=== PATIENT | female | born 1990 | race African-American/Black ===

== ENCOUNTER 2019-11-05 22:23 | Inpatient (IN) | payer BC, OTHER ==
[~2019-11-05 22:23] MED LIST: Iopamidol-370 76% 500 ML 1 ML ONE
[2019-11-05] MEDS ORDERED: Fentanyl 100 MCG/2 ML VIAL ONE (22:32)
[2019-11-05] MEDS ORDERED: Adacel (T-DAP) 0.5 ML SYRINGE ONE (22:32)
[2019-11-05 22:57] LABS: #Basophils 0.1 thou/uL (0.0-0.2); #Eosinphils 0.2 thou/uL (0.0-0.7); #Lymphocytes 3.9 thou/uL (1.20-3.40); #Monocytes 0.7 thou/uL (0.11-0.59); #Neutrophils 11.1 thou/uL (1.40-6.50); %Basophils 0.7 % (0.0-1.0); %Lymphocytes 24.5 % (21.0-51.0); %Monocytes 4.5 % (0.0-10.0); %Neutrophils 69.2 % (42.0-75.0); Hemoglobin 12.9 g/dL (12.0-16.0); Mean Corpuscular HGB CONC 32.2 g/dL (32.0-36.0); Mean Corpuscular Hemoglobin 29.4 pg (27.0-31.0); Mean Corpuscular Volume 91.2 fL (78.0-98.0); Mean Platelet Volume 8.1 fL (7.4-10.4); Platelet Count 306 thou/uL (130-400); RBC Distribution Width 11.9 % (11.5-14.5); Red Blood Cell (RBC) Count 4.41 mill/uL (4.20-5.40)
[2019-11-05 23:03] LABS: BHCG - Serum Negative (NEGATIVE); PTT 28.6 sec (22.9-36.1); Pregs Control Background? CLEAR/WHITE (CLR/WHITE); Pregs Control Bar Appear? YES (CONTROL BAR); Prothrombin Time 13.6 sec (12.0-14.7)
[2019-11-05 23:18] LABS: ALT (SGPT) 62 U/L (8-55); AST (SGOT) 94 U/L (5-34); Alcohol Less than 10 mg/dL (Less than 10); Alkaline Phosphatase 97 U/L (40-110); Anion Gap 17 mmol/L (10-20); BUN (Urea Nitrogen) 10 mg/dL (7.0-18.7); Bilirubin, Total 0.4 mg/dL (0.2-1.2); Calc. Creatinine Clearance 0 mL/min (70-130); Carbon Dioxide 23 mmol/L (22-29); Chloride 105 mmol/L (98-107); Estimated GFR-MDRD 87; Globulin 4.1 g/dL (2.4-3.5); Glucose 135 mg/dL (70-105); Potassium 3.7 mmol/L (3.5-5.1); Protein, Total 8.1 g/dL (6.0-8.3); Sodium 141 mmol/L (136-145)
[2019-11-05] MEDS ORDERED: Dextrose 50% Abboject 50 ML SYRINGE SLOW IVP PRN (23:18)
[2019-11-05] MEDS ORDERED: Ondansetron PF 4 MG/2 ML Vial IVP PRN (23:18)
[2019-11-05] MEDS ORDERED: Dextrose 5% in Water 1,000 ML IV PRN (23:18)
[2019-11-05] MEDS ORDERED: HumaLOG 300 UNITS/3 ML VIAL SC PRN (23:18)
[2019-11-05] MEDS ORDERED: Morphine 2 MG/ML SYRINGE SLOW IVP PRN (23:18)
[2019-11-05] MEDS ORDERED: hydrALAZINE 20 MG/ML VIAL SLOW IVP PRN ×2 (23:18)
[2019-11-05] MEDS ORDERED: traMADol HCl 50 MG TAB PO PRN ×2 (23:20)
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
[2019-11-05] MEDS ORDERED: Lidocaine 1% w/Epinephrine 1:100K 20 ML VIAL ONE (23:34)
[2019-11-05] MEDS ORDERED: Morphine 4 MG/ML VIAL ONE (23:47)
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
[2019-11-06] MEDS ORDERED: Lidocaine 1% (PF) 30 ML VIAL ONE (00:24)
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
[2019-11-06 00:35] LABS: Bacteria/HPF None Seen HPF (None Seen); Bilirubin Negative (Negative); Blood, Urine 2+ (Negative); Clarity Clear (Clear); Glucose, Urine (Dipstick) Normal (Negative); Leukocyte Negative Leu/uL (Negative); Nitrite Negative (Negative); Protein, Urine (Dipstick) 20 mg/dL (Neg-Trace); Squamous Epithelial 0-3 HPF (0-3); Urobilinogen Normal mg/dL (Less than 2); WBC/HPF 0-3 HPF (0-3)
[2019-11-06] MEDS ORDERED: Bacitracin 1 PK ONE (00:51)
[2019-11-06] MEDS ORDERED: Morphine 2 MG/ML SYRINGE ONE (01:34)
[2019-11-06] MEDS: Sodium Chloride 0.9% 1,000 ML IV SCH ×2 (02:27→13:08)
[2019-11-06] MEDS: Morphine 4 MG/ML VIAL SLOW IVP PRN ×4 (02:28→12:18)
[2019-11-06] MEDS: Acetaminophen 500 MG TAB PO SCH ×5 (02:28→23:26)
[2019-11-06] MEDS: Ibuprofen 600 MG TAB PO SCH ×2 (02:28→05:37)
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
[2019-11-06 02:54] VITALS: BMI 33.0
--- NOTE | 2019-11-06 08:41 | RAD ---
Exam: Chest one view HISTORY:Respiratory distress Comparison: 11/05/2019 FINDINGS: Cardiac silhouette: Normal Aorta: Unremarkable Pulmonary vessels: Normal Costophrenic angles: Clear LUNGS: Interval development of bilateral (left greater than right) interstitial and alveolar opacitie s. Pneumothorax: None Osseous abnormalities: None IMPRESSION: Bilateral interstitial and alveolar opacities which have developed since the previous rad iograph.
[2019-11-06] MEDS ORDERED: Gabapentin 300 MG CAP PO SCH (09:00)
[2019-11-06] MEDS: Senokot S 8.6-50 MG TAB PO SCH ×3 (10:03→19:37)
[2019-11-06] MEDS: Polyethylene Glycol 3350 17 GM Packet PO SCH ×2 (10:03)
[2019-11-06] MEDS: Gabapentin 300 MG CAP PO SCH ×4 (10:03→19:37)
[2019-11-06 10:17] LABS: Mean Corpuscular HGB CONC 32.8 g/dL (32.0-36.0); Mean Corpuscular Hemoglobin 29.7 pg (27.0-31.0); Mean Corpuscular Volume 90.3 fL (78.0-98.0); Mean Platelet Volume 8.2 fL (7.4-10.4); Platelet Count 254 thou/uL (130-400); RBC Distribution Width 11.9 % (11.5-14.5); Red Blood Cell (RBC) Count 4.37 mill/uL (4.20-5.40); White Blood Cell (WBC) Count 11.7 thou/uL (4.8-10.8)
[2019-11-06] MEDS: Famotidine/PF 20 mg/2ml Vial SLOW IVP SCH ×2 (10:21→19:37)
[2019-11-06 10:27] LABS: Anion Gap 15 mmol/L (10-20); BUN (Urea Nitrogen) 7 mg/dL (7.0-18.7); Calc. Creatinine Clearance 170 mL/min (70-130); Calcium 8.3 mg/dL (7.8-10.44); Carbon Dioxide 20 mmol/L (22-29); Chloride 107 mmol/L (98-107); Estimated GFR-MDRD Greater than 90; Glucose 124 mg/dL (70-105); Magnesium 1.7 mg/dL (1.6-2.6); Phosphorus 3.8 mg/dL (2.3-4.7); Potassium 3.8 mmol/L (3.5-5.1); Sodium 138 mmol/L (136-145)
[2019-11-06 10:37] LABS: Band 1 % (5-11); Eosinophils 2 % (0-10); Hypersemented Neutrophil SLIGHT; Lymphocytes 17 % (21-51); MDiff Complete? YES; Monocytes 1 % (0-10); Neutrophil 77 % (42-75); Platelet Morphology Comment Appears Adequate; Reactive Lymphocytes 1 % (0-10)
[2019-11-06 10:42] LABS: Base Excess (BEa) -0.4 mEq/L (-2.0 to +3.0); CO2 Tension 38.5 mmHg (35.0-45.0); Carboxyhemoglobin (COHb) 0.9 gm% (0.0-3.0); Hemoglobin (Hb) 12.9 g/dL (12.0-16.0); O2 Tension (PaO2), arterial 78.9 mmHg (80.0-100.0); Potassium - ABG Lab 3.49 mmol/L (3.70-5.30); pH, Arterial 7.41 (7.35-7.45)
[2019-11-06 10:44] LABS: ALV-art Gradient 585.975 (0-20); Puncture Site RRA
[2019-11-06] MEDS ORDERED: Magnesium 2 GM/50 ML 2 GM in Premix Bag 1 BAG IVPB SCH (10:45)
[2019-11-06] MEDS ORDERED: Calcium Chloride 1 GM/10 ML Abboject SYRINGE IVP SCH (12:15)
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
[2019-11-06] MEDS: traMADol HCl 50 MG TAB PO PRN (13:23)
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
[2019-11-07] MEDS ORDERED: Albuterol 200 PUFF (6.7GM INHALER) INH PRN (00:55)
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
[2019-11-07] MEDS: Albuterol 200 PUFF (6.7GM INHALER) INH SCH ×3 (03:25→12:58)
[2019-11-07 03:56] LABS: #Eosinphils 0.2 thou/uL (0.0-0.7); #Lymphocytes 1.3 thou/uL (1.20-3.40); #Monocytes 0.7 thou/uL (0.11-0.59); #Neutrophils 11.8 thou/uL (1.40-6.50); %Basophils 0.3 % (0.0-1.0); %Eosinophils 1.1 % (0.0-10.0); %Lymphocytes 9.5 % (21.0-51.0); %Monocytes 5.2 % (0.0-10.0); %Neutrophils 83.9 % (42.0-75.0); Hemoglobin 12.7 g/dL (12.0-16.0); Mean Corpuscular HGB CONC 33.6 g/dL (32.0-36.0); Mean Corpuscular Hemoglobin 30.8 pg (27.0-31.0); Mean Corpuscular Volume 91.8 fL (78.0-98.0); Mean Platelet Volume 8.3 fL (7.4-10.4); Platelet Count 222 thou/uL (130-400); RBC Distribution Width 12.2 % (11.5-14.5); Red Blood Cell (RBC) Count 4.13 mill/uL (4.20-5.40)
[2019-11-07 04:28] LABS: Anion Gap 12 mmol/L (10-20); BUN (Urea Nitrogen) 6 mg/dL (7.0-18.7); Calc. Creatinine Clearance 163 mL/min (70-130); Calcium 8.5 mg/dL (7.8-10.44); Carbon Dioxide 23 mmol/L (22-29); Chloride 105 mmol/L (98-107); Estimated GFR-MDRD Greater than 90; Glucose 117 mg/dL (70-105); Potassium 3.8 mmol/L (3.5-5.1); Sodium 136 mmol/L (136-145)
[2019-11-07] MEDS: Morphine 4 MG/ML VIAL SLOW IVP PRN ×3 (04:51→12:01)
[2019-11-07] MEDS: Acetaminophen 500 MG TAB PO SCH ×3 (05:39→17:07)
[2019-11-07] MEDS ORDERED: Potassium Phosphate 15 MMOL in Sodium Chloride 0.9% 250 ML 250 ML IVPB SCH (07:45)
[2019-11-07] MEDS ORDERED: Fentanyl 100 MCG/2 ML VIAL ONE (07:58)
[2019-11-07] MEDS: Polyethylene Glycol 3350 17 GM Packet PO SCH ×2 (08:02)
[2019-11-07] MEDS: Gabapentin 300 MG CAP PO SCH (08:02)
[2019-11-07] MEDS: Senokot S 8.6-50 MG TAB PO SCH ×2 (08:02→20:10)
[2019-11-07] MEDS: Famotidine/PF 20 mg/2ml Vial SLOW IVP SCH ×2 (08:06→20:10)
[2019-11-07 08:58] LABS: Pregnancy Test - Urine (BHCG) Negative (Negative); Pregu Control Background? CLEAR/WHITE (CLR/WHITE); Pregu Control Bar Appear? YES (CONTROL BAR); Specific Gravity 1.029 (1.002-1.036)
[2019-11-07] MEDS ORDERED: Dexamethasone 20 MG/5 ML VIAL ONE (10:58)
[2019-11-07] MEDS ORDERED: Glycopyrrolate 0.2 MG/ML 5 ML SYRINGE ONE (10:58)
[2019-11-07] MEDS ORDERED: Succinylcholine Chloride 20 MG/ML 10 ml SYRINGE FS ONE (10:58)
[2019-11-07] MEDS ORDERED: Lidocaine 1% PF 5 ML VIAL ONE (10:58)
[2019-11-07] MEDS ORDERED: PHENYLEPHRINE-NS 100 MCG/ML 10 ML SYRINGE ONE (10:58)
[2019-11-07] MEDS ORDERED: PROPOFOL 200 MG/20 ML VIAL ONE (10:58)
[2019-11-07] MEDS ORDERED: Ondansetron PF 4 MG/2 ML Vial ONE (10:58)
[2019-11-07] MEDS ORDERED: Rocuronium Bromide 10 MG/ML (10ML VIAL) ONE (10:58)
[2019-11-07 12:20] LABS: SARS-CoV-2 MS2 Positive; SARS-CoV-2 N Gene Negative; SARS-CoV-2 S Gene Negative; SARS-CoV-2 orf1ab Negative
--- NOTE | 2019-11-07 13:22 | OP ---
DATE OF PROCEDURE: 11/07/2019 PREOPERATIVE DIAGNOSES: 1. Displaced midshaft fracture of the right femur. 2. Comminuted fracture of the body of the right talus. POSTOPERATIVE DIAGNOSES: 1. Displaced midshaft fracture of the right femur. 2. Comminuted fracture of the body of the right talus. PROCEDURES PERFORMED: 1. Intramedullary rodding of the midshaft of the right femur. 2. Open reduction and internal fixation of the body of the right talus. ANESTHESIA: General. DESCRIPTION OF PROCEDURE: The patient was given preoperative IV antibiotics and taken to the operating room, placed in the supine position on the fracture table. All bony prominences were well padded. The splint was left over the right foot and ankle, and traction was applied to the splint to try to keep the traction as small as possible to the right ankle. The midshaft fracture of the right femur was visualized with C-arm and could easily be reduced. The lateral aspect of the right hip and thigh was then sterilely prepped and draped. A longitudinal incision was made just proximal to the greater trochanter, approximately 3 inches in length, and under fluoroscopic visualization, a guide pin was placed through the greater trochanter into the intramedullary canal, it was then over-reamed. A reaming guidewire was then inserted through the proximal aspect of the femur, crossing the fracture and down to the distal aspect of the femur. The appropriate sized length of nail was measured and the intramedullary canal was then sequentially reamed up to 11.5 mm. A lateral entry femoral reconstruction nail that was 10 mm in diameter and 400 mm in length was inserted into the proximal aspect of the femur, crossing the fracture and into the distal aspect of the femur and this provided excellent reduction of the fracture and excellent fixation. Interlocking screws were not required proximally or distally because the fracture was at the isthmus and the intramedullary nail provided good stability. The wound was then irrigated and closed using #1 Vicryl and 2-0 Vicryl and then the skin was closed with skin judy. Sterile dressing was applied. The patient was taken out of traction. The right foot and ankle were then sterilely prepped and draped. After exsanguination, tourniquet at the right proximal leg was raised to 250 mm. Initially, a longitudinal incision was made over the anterior aspect of the ankle down to the talus and into the talonavicular area. The body of the talus was displaced. It was reduced, held reduced and then 2 pins were then placed from the navicular into the distal aspect of the talus, crossing the fracture and into the body. An additional incision was made in the posterior lateral aspect of the ankle just lateral to the Achilles tendon, and under fluoroscopic visualization, a guide pin was placed through the posterior aspect of the talar body, crossing the fracture and into the neck. Appropriate sized screw was measured and a 4.0 cannulated screw was inserted through the posterior aspect, crossing the fracture and this provided excellent fixation. The 1.25 mm pins that had previously been placed from the navicular into the talus and crossing the fracture were left in place and they were bent and cut just outside the skin. The 4.0 cannulated screw that provided good stability to the fracture was verified good position with the C-arm. The wounds were then irrigated and closed using 0 Vicryl for the fat and subcutaneous tissue, and skin was closed with skin judy. Sterile dressing was applied. The patient was placed in a tall boot. The patient was then transferred back to the ICU. ESTIMATED BLOOD LOSS: 50 mL. COMPLICATIONS: None. Job ID: [id number]
[2019-11-07] MEDS: traMADol HCl 50 MG TAB PO PRN (13:35)
[2019-11-07] MEDS ORDERED: Ketorolac Tromethamine 30 MG/ML VIAL IVP SCH (14:00)
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
[2019-11-07] MEDS ORDERED: Gabapentin 300 MG CAP PO SCH (15:00)
[2019-11-07] MEDS ORDERED: Gabapentin 400 MG CAP PO SCH (16:00)
[2019-11-07] MEDS: CEFAZOLIN 2 GM in Premix Bag 1 BAG IVPB SCH (17:08)
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
--- NOTE | 2019-11-07 17:49 | RAD ---
INTRAPROCEDURE FLUOROSCOPY: History: Right ankle ORIF. Exposure: 65.9 seconds, 2.37 mGy*cm^2 FINDINGS: Four intraprocedure fluoroscopic views demonstrate placement of a single screw and two K wires luis carlos sing the talus. IMPRESSION: Intraoperative fluoroscopy. POS: [facility]
[2019-11-07] MEDS: Gabapentin 400 MG CAP PO SCH (20:11)
[2019-11-07] MEDS: Ibuprofen 600 MG TAB PO SCH (20:24)
[2019-11-08] MEDS: CEFAZOLIN 2 GM in Premix Bag 1 BAG IVPB SCH (00:02)
[2019-11-08] MEDS: Acetaminophen 500 MG TAB PO SCH ×5 (00:02→23:43)
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
[2019-11-08 04:13] LABS: Band 13 % (5-11); Eosinophils 3 % (0-10); Lymphocytes 12 % (21-51); MDiff Complete? YES; Mean Corpuscular HGB CONC 33.2 g/dL (32.0-36.0); Mean Corpuscular Hemoglobin 30.3 pg (27.0-31.0); Mean Corpuscular Volume 91.2 fL (78.0-98.0); Mean Platelet Volume 8.5 fL (7.4-10.4); Monocytes 2 % (0-10); Neutrophil 69 % (42-75); Platelet Count 193 thou/uL (130-400); Platelet Morphology Comment Appears Adequate; RBC Distribution Width 12.1 % (11.5-14.5); Red Blood Cell (RBC) Count 3.63 mill/uL (4.20-5.40); White Blood Cell (WBC) Count 13.4 thou/uL (4.8-10.8)
[2019-11-08 04:15] LABS: Anion Gap 14 mmol/L (10-20); BUN (Urea Nitrogen) 7 mg/dL (7.0-18.7); Calc. Creatinine Clearance 163 mL/min (70-130); Calcium 8.3 mg/dL (7.8-10.44); Carbon Dioxide 23 mmol/L (22-29); Chloride 106 mmol/L (98-107); Estimated GFR-MDRD Greater than 90; Glucose 115 mg/dL (70-105); Magnesium 2.1 mg/dL (1.6-2.6); Phosphorus 2.6 mg/dL (2.3-4.7); Sodium 139 mmol/L (136-145)
[2019-11-08] MEDS: Ibuprofen 600 MG TAB PO SCH ×3 (05:40→22:31)
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
[2019-11-08] MEDS: Polyethylene Glycol 3350 17 GM Packet PO SCH ×2 (08:07→08:08)
[2019-11-08] MEDS: Senokot S 8.6-50 MG TAB PO SCH ×2 (08:10→20:25)
[2019-11-08] MEDS: Famotidine/PF 20 mg/2ml Vial SLOW IVP SCH ×2 (08:10→20:26)
[2019-11-08] MEDS: Gabapentin 400 MG CAP PO SCH ×3 (08:10→20:25)
[2019-11-08] MEDS ORDERED: Levalbuterol HCl 0.63 MG/3 ML NEB NEB PRN ×3 (10:08→14:00)
[2019-11-08] MEDS: traMADol HCl 50 MG TAB PO PRN (10:37)
[2019-11-08] MEDS ORDERED: Levalbuterol HCl 0.63 MG/3 ML NEB NEB SCH (13:00)
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
[2019-11-08] MEDS: Levalbuterol HCl 0.63 MG/3 ML NEB NEB SCH (19:02)
--- NOTE | 2019-11-08 19:43 | PRG ---
DATE OF SERVICE: 11/08/2019 SUBJECTIVE: Ms. El was able to get out of bed today and sit in a chair. She has typical pain in the right thigh and ankle and foot area. She has swelling in the right foot. OBJECTIVE: VITAL SIGNS: The patient's temperature 97.8, heart rate 136, respiratory rate 26, O2 saturation 100%, and blood pressure 123/70. EXTREMITIES: The right foot is in a tall boot. She is able to flex and extend her toes. She has good capillary refill and the sensation is somewhat decreased to light touch. IMAGING STUDIES: Chest x-ray performed this morning shows multifocal scattered airspace opacities in the lung consistent with multifocal pneumonia and it is worse compared to x-ray performed yesterday. PLAN: The patient will continue to work with Physical Therapy to get out of bed. She will need to be nonweightbearing on the right lower extremity because of the talus fracture. She will continue to work with Respiratory Therapy. Job ID: [id number]
[2019-11-08] MEDS: Enoxaparin Sodium 40 MG/0.4 ML SYRINGE SC SCH (20:26)
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
[2019-11-09] MEDS: Levalbuterol HCl 0.63 MG/3 ML NEB NEB SCH ×4 (01:07→19:12)
[2019-11-09] MEDS: Ibuprofen 600 MG TAB PO SCH ×3 (06:01→22:13)
[2019-11-09] MEDS: Acetaminophen 500 MG TAB PO SCH ×4 (06:01→23:59)
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
[2019-11-09] MEDS: Gabapentin 400 MG CAP PO SCH ×3 (09:03→20:15)
[2019-11-09] MEDS: Famotidine/PF 20 mg/2ml Vial SLOW IVP SCH (09:03)
[2019-11-09] MEDS: Senokot S 8.6-50 MG TAB PO SCH ×2 (09:03→20:15)
[2019-11-09] MEDS: Polyethylene Glycol 3350 17 GM Packet PO SCH (09:04)
[2019-11-09 09:19] LABS: #Basophils 0.1 thou/uL (0.0-0.2); #Eosinphils 0.5 thou/uL (0.0-0.7); #Lymphocytes 2.4 thou/uL (1.20-3.40); #Monocytes 0.9 thou/uL (0.11-0.59); %Basophils 1.3 % (0.0-1.0); %Eosinophils 4.3 % (0.0-10.0); %Lymphocytes 22.1 % (21.0-51.0); %Monocytes 8.1 % (0.0-10.0); %Neutrophils 64.2 % (42.0-75.0); Hemoglobin 9.6 g/dL (12.0-16.0); Mean Corpuscular HGB CONC 30.7 g/dL (32.0-36.0); Mean Corpuscular Hemoglobin 28.2 pg (27.0-31.0); Mean Corpuscular Volume 92.1 fL (78.0-98.0); Mean Platelet Volume 9.4 fL (7.4-10.4); Platelet Count 195 thou/uL (130-400); RBC Distribution Width 12.1 % (11.5-14.5); White Blood Cell (WBC) Count 10.8 thou/uL (4.8-10.8)
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
[2019-11-09 09:46] LABS: Anion Gap 12 mmol/L (10-20); BUN (Urea Nitrogen) 8 mg/dL (7.0-18.7); Calc. Creatinine Clearance 191 mL/min (70-130); Calcium 8.3 mg/dL (7.8-10.44); Carbon Dioxide 26 mmol/L (22-29); Chloride 104 mmol/L (98-107); Estimated GFR-MDRD Greater than 90; Glucose 99 mg/dL (70-105); Magnesium 2.1 mg/dL (1.6-2.6); Phosphorus 2.3 mg/dL (2.3-4.7); Sodium 138 mmol/L (136-145)
[2019-11-09] MEDS: traMADol HCl 50 MG TAB PO PRN ×2 (13:12→20:15)
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
[2019-11-09] MEDS: Famotidine 20 MG TAB PO SCH (20:15)
[2019-11-09] MEDS: Enoxaparin Sodium 40 MG/0.4 ML SYRINGE SC SCH (20:16)
[2019-11-10] MEDS: Levalbuterol HCl 0.63 MG/3 ML NEB NEB SCH ×5 (00:20→23:06)
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
[2019-11-10] MEDS: Ibuprofen 600 MG TAB PO SCH ×3 (06:26→21:13)
[2019-11-10] MEDS: Acetaminophen 500 MG TAB PO SCH ×4 (06:26→23:02)
[2019-11-10 08:19] LABS: #Basophils 0.2 thou/uL (0.0-0.2); #Eosinphils 0.4 thou/uL (0.0-0.7); #Lymphocytes 2.3 thou/uL (1.20-3.40); #Monocytes 0.7 thou/uL (0.11-0.59); %Basophils 1.8 % (0.0-1.0); %Eosinophils 4.6 % (0.0-10.0); %Lymphocytes 26.5 % (21.0-51.0); %Monocytes 8.7 % (0.0-10.0); %Neutrophils 58.4 % (42.0-75.0); Hemoglobin 9.2 g/dL (12.0-16.0); Mean Corpuscular HGB CONC 32.6 g/dL (32.0-36.0); Mean Platelet Volume 8.9 fL (7.4-10.4); Platelet Count 206 thou/uL (130-400); RBC Distribution Width 12.3 % (11.5-14.5); Red Blood Cell (RBC) Count 3.06 mill/uL (4.20-5.40); White Blood Cell (WBC) Count 8.6 thou/uL (4.8-10.8)
[2019-11-10] MEDS ORDERED: Piperacillin/Tazobactam 3.375 GM in Sodium Chloride 0.9% 100 ML IVPB SCH (09:00)
[2019-11-10] MEDS: Senokot S 8.6-50 MG TAB PO SCH ×2 (10:19→21:15)
[2019-11-10] MEDS: Gabapentin 400 MG CAP PO SCH ×3 (10:19→21:13)
[2019-11-10] MEDS: Polyethylene Glycol 3350 17 GM Packet PO SCH (10:19)
[2019-11-10] MEDS: traMADol HCl 50 MG TAB PO PRN ×2 (10:20→18:20)
[2019-11-10] MEDS: Famotidine 20 MG TAB PO SCH (11:46)
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
--- NOTE | 2019-11-10 20:33 | PRG ---
DATE OF SERVICE: 11/10/2019 SUBJECTIVE: Ms. El is 3 days status post IM rodding of the right femur and open reduction and internal fixation of a right talus fracture. The patient is sitting up in a chair. She states that she is breathing better. She has no neurologic complaints in the right lower extremity. OBJECTIVE: GENERAL: The patient is sitting up in a chair, in no apparent distress. VITAL SIGNS: Her last temperature was 98.1, O2 saturation is 100% on 2 L by nasal cannula, heart rate 110, respiratory rate 26, and blood pressure 104/75. EXTREMITIES: The right lower extremity is neurovascularly intact. LABORATORY DATA: Her laboratory today showed hemoglobin 9.2 and hematocrit 28.2. PLAN: The patient will need to continue to be nonweightbearing because of the right talus fracture. I have the nurse change the dressing on the right foot and ankle as well as the right hip area. She will continue to work with the therapist working on ambulation with a walker. Again, nonweightbearing on the right lower extremity. She will follow up with me in the office between 2 and 3 weeks from the surgery. Job ID: [id number]
[2019-11-10] MEDS: Enoxaparin Sodium 40 MG/0.4 ML SYRINGE SC SCH (21:13)
[2019-11-10] MEDS: Amoxicillin/Potassium Clav 875 MG TAB PO SCH (21:13)
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
[2019-11-11] MEDS: Acetaminophen 500 MG TAB PO SCH ×2 (05:46→11:45)
[2019-11-11] MEDS: Ibuprofen 600 MG TAB PO SCH ×2 (05:46→14:09)
[2019-11-11 06:26] LABS: Hemoglobin 9.4 g/dL (12.0-16.0); MDiff Complete? YES; Mean Corpuscular HGB CONC 31.1 g/dL (32.0-36.0); Mean Corpuscular Hemoglobin 28.7 pg (27.0-31.0); Mean Corpuscular Volume 92.3 fL (78.0-98.0); Mean Platelet Volume 8.9 fL (7.4-10.4); Platelet Count 226 thou/uL (130-400); RBC Distribution Width 12.4 % (11.5-14.5); Red Blood Cell (RBC) Count 3.26 mill/uL (4.20-5.40); White Blood Cell (WBC) Count 7.5 thou/uL (4.8-10.8)
[2019-11-11 06:27] LABS: Eosinophils 1 % (0-10); Hypochromia SLIGHT = 6-15 cells (100X) (0-5/hpf); Lymphocytes 20 % (21-51); Monocytes 4 % (0-10); Neutrophil 75 % (42-75); Platelet Morphology Comment Appears Adequate
[2019-11-11] MEDS: Levalbuterol HCl 0.63 MG/3 ML NEB NEB SCH ×2 (07:02→12:46)
[2019-11-11 07:31] LABS: Chloride 105 mmol/L (98-107); Potassium 3.8 mmol/L (3.5-5.1); Sodium 136 mmol/L (136-145)
[2019-11-11 07:32] LABS: Calcium 8.4 mg/dL (7.8-10.44); Glucose 96 mg/dL (70-105)
[2019-11-11 07:34] LABS: Anion Gap 10 mmol/L (10-20); Carbon Dioxide 25 mmol/L (22-29)
[2019-11-11 07:36] LABS: Calc. Creatinine Clearance 191 mL/min (70-130); Estimated GFR-MDRD Greater than 90
[2019-11-11 07:37] LABS: BUN (Urea Nitrogen) 11 mg/dL (7.0-18.7)
[2019-11-11 07:38] LABS: Magnesium 1.7 mg/dL (1.6-2.6)
[2019-11-11 07:41] LABS: Phosphorus 4.2 mg/dL (2.3-4.7)
[2019-11-11] MEDS: Amoxicillin/Potassium Clav 875 MG TAB PO SCH (08:55)
[2019-11-11] MEDS: Gabapentin 400 MG CAP PO SCH ×2 (08:55→14:09)
[2019-11-11] MEDS: Polyethylene Glycol 3350 17 GM Packet PO SCH (08:56)
[2019-11-11] MEDS: Senokot S 8.6-50 MG TAB PO SCH (08:56)
[2019-11-11] MEDS ORDERED: Magnesium 2 GM/50 ML 2 GM in Premix Bag 1 BAG IVPB SCH (10:30)
[2019-11-11] MEDS: traMADol HCl 50 MG TAB PO PRN (11:45)
[2019-11-11 12:23] VITALS: BP 129/89; TEMP 98
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
== END 2019-11-11 15:15 | disposition home health service (06) | DRG 956 ==
LOC: ERS 22:23 → SURG B 23:21 → CCU 11-06 12:38 → IMCU/EMU 11-08 11:28 → SURG B 11-10 16:50
PROVIDERS: ADMIT Surgery; ATTEND Surgery
PROC: 0QH836Z Insertion of Intramedullary Internal Fixation Device into Right Femoral Shaft, Percutaneous Approach (ICD-10-PCS; principal; 2019-11-07)
PROC: 0QSL04Z Reposition Right Tarsal with Internal Fixation Device, Open Approach (ICD-10-PCS; 2019-11-07)
DX: S72.391A Other fracture of shaft of right femur, initial encounter for closed fracture (principal); S27.322A Contusion of lung, bilateral, initial encounter; J96.01 Acute respiratory failure with hypoxia; T79.1XXA Fat embolism (traumatic), initial encounter; J18.9 Pneumonia, unspecified organism; S92.124A Nondisplaced fracture of body of right talus, initial encounter for closed fracture; S93.04XA Dislocation of right ankle joint, initial encounter; Z20.828 Contact with and (suspected) exposure to other viral communicable diseases; V89.2XXA Person injured in unspecified motor-vehicle accident, traffic, initial encounter; Y92.415 Exit ramp or entrance ramp of street or highway as the place of occurrence of the external cause; Z86.11 Personal history of tuberculosis
CPT/HCPCS: 12004; 36415; 51702; 70450; 71045; 71260; 72125; 72170; 74177; 76000; 80048; 80053; 80307; 81003; 81015; 81025; 82805; 83735; 84100; 84145; 84703; 85007; 85025; 85027; 85610; 85730; 86850; 86900; 86901; 87070; 87205; 87635; 90471; 90715; 93970; 94640; 94667; 94668; 96365; 96375; 96376; C1713; G0390; J0690; J1100; J1650; J1885; J2001; J2270; J2405; J2543; J2704; J3010; J3475; J3490; J7050; J7614; J7620; Q9967; S0028; U0003

== ENCOUNTER 2019-11-24 09:55 | Outpatient (CLI) | payer BC ==
--- NOTE | 2019-11-24 10:38 | RAD ---
PA AND LATERAL VIEWS CHEST: Date: 11/24/2019 HISTORY: Pulmonary contusion. COMPARISON: 11/09/2019. FINDINGS: The heart size is normal. The lungs are expanded without lobar consolidation, pneumothoraces, or pleu ral effusions. The bony structures are unremarkable. IMPRESSION: No radiographic evidence of acute cardiopulmonary process. POS: [facility]
== END 2019-11-24 09:56 | disposition home or self-care (01) ==
LOC: BICRAD 09:55
PROVIDERS: ATTEND Surgery
DX: S27.329A Contusion of lung, unspecified, initial encounter (principal)
CPT/HCPCS: 71046